=== PATIENT | female | born 2000 | race Caucasian/White ===

== ENCOUNTER 2021-07-27 23:15 | Emergency (ER) | payer OTHER ==
[~2021-07-27] VITALS: Ht 152.4 cm; Wt 81.0 kg
[2021-07-28 07:29] LABS: BASO % 0.3 % (0.0-1.0); EOS # 0.2 10^3/uL (0.0-0.5); EOS % 2.2 % (0.0-3.0); HEMATOCRIT 38.9 % (36.0-47.0); HEMOGLOBIN 12.5 g/dl (12.0-15.5); LYMPH # 1.6 10^3/uL (1.5-5.0); LYMPH % 21.4 % (24.0-44.0); MEAN CORPUSCULAR HEMOGLOBIN 27.5 pg (27.0-33.0); MEAN CORPUSCULAR HGB CONC 32.1 g/dl (32.0-36.5); MEAN CORPUSCULAR VOLUME 85.5 fl (80.0-96.0); MONO # 0.7 10^3/uL (0.0-0.8); MONO % 9.7 % (2.0-8.0); NEUTROPHILS # 4.8 10^3/uL (1.5-8.5); NEUTROPHILS % 66.1 % (36.0-66.0); PLATELET COUNT, AUTOMATED 211 10^3/uL (150-450); RED BLOOD COUNT 4.55 10^6/uL (4.00-5.40); WHITE BLOOD COUNT 7.2 10^3/uL (4.0-10.0)
[2021-07-28] MEDS ORDERED: KETOROLAC 30 MG/ML 1ML VIAL IV ONE (07:30)
[2021-07-28 07:46] LABS: ERYTHROCYTE SEDIMENTATION RATE 10 mm/hr (0-20)
[2021-07-28 07:52] LABS: ALT/SGPT 62 U/L (12-78); AMYLASE 62 U/L (25-115); BILIRUBIN,DIRECT 0.2 MG/DL (0.0-0.2); BILIRUBIN,TOTAL 0.4 MG/DL (0.2-1.0); BLOOD UREA NITROGEN 19 MG/DL (7-18); C REACTIVE PROTEIN QUANTITATIV 1.79 MG/DL (0.00-0.30); CALCIUM LEVEL 9.1 MG/DL (8.5-10.1); CARBON DIOXIDE LEVEL 30 MEQ/L (21-32); CHLORIDE LEVEL 109 MEQ/L (98-107); CREATININE FOR GFR 0.71 MG/DL (0.55-1.30); GLUCOSE, FASTING 100 MG/DL (70-100); HCG, SERUM QUANTITATIVE < 1.0 MIU/ML; LIPASE 82 U/L (73-393); POTASSIUM SERUM 4.2 MEQ/L (3.5-5.1); SODIUM LEVEL 140 MEQ/L (136-145)
[2021-07-28] MEDS ORDERED: ONDA4TAB6 PO (09:04)
[2021-07-28 09:09] VITALS: BP 107/65
== END 2021-07-28 09:22 | disposition home or self-care (01) ==
LOC: M ED 23:15
DX: R10.9 Unspecified abdominal pain (principal); F90.9 Attention-deficit hyperactivity disorder, unspecified type; Z91.013 Allergy to seafood
CPT/HCPCS: 36415; 76705; 80048; 80076; 82150; 83690; 84702; 85025; 85652; 86140; 96374; 99284; J1885

== ENCOUNTER 2021-08-03 | Emergency (ER) | payer OTHER ==
[~2021-08-03] VITALS: Ht 152.4 cm; Wt 80.7 kg
[~2021-08-03] MED LIST: ONDA4TAB6 PO
[2021-08-03] MEDS ORDERED: predniSONE 20 MG TAB PO ONE (04:15)
[2021-08-03] MEDS ORDERED: PRED20TA PO (04:17)
[2021-08-03 05:09] VITALS: BP 110/74
== END 2021-08-03 05:10 | disposition home or self-care (01) ==
LOC: M ED
DX: T78.40XA Allergy, unspecified, initial encounter (principal); Y92.9 Unspecified place or not applicable; Y93.E2 Activity, laundry; Z91.013 Allergy to seafood
CPT/HCPCS: 99283; J7512

== ENCOUNTER 2021-08-09 23:07 | Emergency (ER) | payer OTHER ==
[~2021-08-09] VITALS: Ht 152.4 cm; Wt 83.4 kg
[~2021-08-09 23:07] MED LIST changes: +PRED20TA PO
[2021-08-10] MEDS ORDERED: NS 1,000 ML IV ONE (01:15)
[2021-08-10] MEDS ORDERED: KETOROLAC 30 MG/ML 1ML VIAL IV ONE (01:15)
[2021-08-10] MEDS ORDERED: ONDANSETRON 4MG/2ML VIAL IV ONE (01:15)
[2021-08-10] MEDS ORDERED: MECLIZINE 25 MG TABLET PO ONE (01:15)
[2021-08-10 02:13] LABS: BASO # 0.1 10^3/uL (0.0-0.2); BASO % 0.5 % (0.0-1.0); EOS # 0.3 10^3/uL (0.0-0.5); EOS % 2.4 % (0.0-3.0); HEMATOCRIT 38.5 % (36.0-47.0); HEMOGLOBIN 12.4 g/dl (12.0-15.5); LYMPH # 3.3 10^3/uL (1.5-5.0); LYMPH % 31.2 % (24.0-44.0); MEAN CORPUSCULAR HEMOGLOBIN 27.8 pg (27.0-33.0); MEAN CORPUSCULAR HGB CONC 32.2 g/dl (32.0-36.5); MEAN CORPUSCULAR VOLUME 86.3 fl (80.0-96.0); MONO # 0.8 10^3/uL (0.0-0.8); MONO % 7.3 % (2.0-8.0); NEUTROPHILS # 6.1 10^3/uL (1.5-8.5); NEUTROPHILS % 58.3 % (36.0-66.0); PLATELET COUNT, AUTOMATED 234 10^3/uL (150-450); RED BLOOD COUNT 4.46 10^6/uL (4.00-5.40); WHITE BLOOD COUNT 10.5 10^3/uL (4.0-10.0)
[2021-08-10 02:17] LABS: BLOOD UREA NITROGEN 20 MG/DL (7-18); CALCIUM LEVEL 9.1 MG/DL (8.5-10.1); CARBON DIOXIDE LEVEL 28 MEQ/L (21-32); CHLORIDE LEVEL 107 MEQ/L (98-107); CREATININE FOR GFR 0.74 MG/DL (0.55-1.30); GLUCOSE, FASTING 94 MG/DL (70-100); POTASSIUM SERUM 4.4 MEQ/L (3.5-5.1); SODIUM LEVEL 139 MEQ/L (136-145)
[2021-08-10 03:46] LABS: RSV AMPLIFICATION NEGATIVE (NEGATIVE)
[2021-08-10 03:55] VITALS: BP 111/59
== END 2021-08-10 03:56 | disposition home or self-care (01) ==
LOC: M ED 23:07
DX: R51.9 Headache, unspecified (principal); E66.9 Obesity, unspecified; Z91.013 Allergy to seafood
CPT/HCPCS: 70450; 80047; 80048; 83735; 84439; 84443; 84702; 85025; 86140; 87631; 96361; 96374; 96375; 99284; J1885; J2405

== ENCOUNTER → 2021-08-23 | Outpatient (REF) | payer OTHER ==
[2021-08-23 17:06] LABS: HCG, SERUM QUALITATIVE NEGATIVE (NEGATIVE)
[2021-08-23 17:10] LABS: HCG, SERUM QUANTITATIVE < 1.0 MIU/ML
== END ==
LOC: M LAB REF 16:11
PROVIDERS: ATTEND Physician Assistant Medical
DX: Z32.00 Encounter for pregnancy test, result unknown (principal)

== ENCOUNTER 2021-12-21 21:15 | Emergency (ER) | payer OTHER ==
[~2021-12-21] VITALS: Ht 154.9 cm; Wt 80.3 kg
[2021-12-21 21:18] VITALS: BP 119/79
[2021-12-21 22:23] LABS: HEMATOCRIT 36.5 % (36.0-47.0); HEMOGLOBIN 11.9 g/dl (12.0-15.5); MEAN CORPUSCULAR HGB CONC 32.6 g/dl (32.0-36.5); MEAN CORPUSCULAR VOLUME 85.9 fl (80.0-96.0); PLATELET COUNT, AUTOMATED 225 10^3/uL (150-450); RED BLOOD COUNT 4.25 10^6/uL (4.00-5.40); WHITE BLOOD COUNT 5.8 10^3/uL (4.0-10.0)
[2021-12-21 22:47] LABS: AMPHETAMINES LEVEL URINE NEGATIVE (NEGATIVE); BARBITURATES URINE NEGATIVE (NEGATIVE); BENZODIAZEPINES URINE NEGATIVE (NEGATIVE); CANNABINOIDS URINE NEGATIVE (NEGATIVE); COCAINE METABOLITE URINE NEGATIVE (NEGATIVE); METHADONE URINE NEGATIVE (NEGATIVE); OPIATES URINE NEGATIVE (NEGATIVE); PHENCYCLIDINE URINE NEGATIVE (NEGATIVE)
[2021-12-21 22:51] LABS: RSV AMPLIFICATION NEGATIVE (NEGATIVE)
[2021-12-21 22:56] LABS: ACETAMINOPHEN LEVEL < 2.0 UG/ML (10.0-30.0); ALBUMIN 3.8 GM/DL (3.2-5.2); ALT/SGPT 30 U/L (12-78); BILIRUBIN,DIRECT 0.2 MG/DL (0.0-0.2); BILIRUBIN,TOTAL 0.4 MG/DL (0.2-1.0); BLOOD UREA NITROGEN 13 MG/DL (7-18); CALCIUM LEVEL 8.9 MG/DL (8.5-10.1); CARBON DIOXIDE LEVEL 28 MEQ/L (21-32); CHLORIDE LEVEL 109 MEQ/L (98-107); CREATININE FOR GFR 0.94 MG/DL (0.55-1.30); ETHYL ALCOHOL (ETHANOL) < 0.003 % (0.000-0.010); GLUCOSE, FASTING 85 MG/DL (70-100); POTASSIUM SERUM 3.7 MEQ/L (3.5-5.1); SALICYLATE LEVEL < 1.7 MG/DL (5.0-30.0); SODIUM LEVEL 144 MEQ/L (136-145); THYROID STIMULATING HORMONE 0.801 uIU/ML (0.463-3.98); TOTAL PROTEIN 6.7 GM/DL (6.4-8.2)
[2021-12-21 23:00] LABS: HCG, SERUM QUALITATIVE NEGATIVE (NEGATIVE)
== END 2021-12-21 23:40 | disposition home or self-care (01) ==
LOC: M ED 21:15
DX: F43.0 Acute stress reaction (principal); F32.9 Major depressive disorder, single episode, unspecified; F41.9 Anxiety disorder, unspecified; F43.10 Post-traumatic stress disorder, unspecified; F17.200 Nicotine dependence, unspecified, uncomplicated; F12.10 Cannabis abuse, uncomplicated; Z91.013 Allergy to seafood

== ENCOUNTER 2022-01-02 20:12 | Emergency (ER) | payer OTHER ==
[~2022-01-02] VITALS: Ht 154.9 cm; Wt 80.5 kg
[2022-01-02] MEDS ORDERED: TRAZ-252 PO (20:29)
[2022-01-02] MEDS ORDERED: ZOLO100T PO (20:29)
[2022-01-02] MEDS ORDERED: ACETAMINOPHEN 325 MG TAB PO ONE (22:35)
[2022-01-02 22:49] VITALS: BP 116/65
== END 2022-01-02 22:55 | disposition home or self-care (01) ==
LOC: M ED 20:12
DX: S60.221A Contusion of right hand, initial encounter (principal); W22.8XXA Striking against or struck by other objects, initial encounter; Y92.830 Public park as the place of occurrence of the external cause; F17.200 Nicotine dependence, unspecified, uncomplicated; Z91.013 Allergy to seafood

== ENCOUNTER → 2022-02-15 | Outpatient (REF) | payer OTHER ==
[~2022-02-15] MED LIST changes: +TRAZ-252 PO; +ZOLO100T PO
[2022-02-15 17:50] LABS: HCG, SERUM QUALITATIVE POSITIVE (NEGATIVE)
[2022-02-15 18:01] LABS: HCG, SERUM QUANTITATIVE 262 MIU/ML
== END ==
LOC: M LAB REF 16:37
PROVIDERS: ATTEND Physician Assistant
DX: Z32.01 Encounter for pregnancy test, result positive (principal)

== ENCOUNTER → 2022-04-06 | Outpatient (REF) | payer OTHER | LOC: M LAB REF 16:37 | PROVIDERS: ATTEND Physician Assistant Medical | DX: R05.9 Cough, unspecified (principal) ==

== ENCOUNTER → 2022-04-17 | Outpatient (CLI) | payer OTHER ==
[2022-04-17 17:35] LABS: HEMATOCRIT 36.3 % (36.0-47.0); HEMOGLOBIN 11.9 g/dl (12.0-15.5); MEAN CORPUSCULAR HEMOGLOBIN 28.1 pg (27.0-33.0); MEAN CORPUSCULAR HGB CONC 32.8 g/dl (32.0-36.5); MEAN CORPUSCULAR VOLUME 85.6 fl (80.0-96.0); PLATELET COUNT, AUTOMATED 158 10^3/uL (150-450); RED BLOOD COUNT 4.24 10^6/uL (4.00-5.40); WHITE BLOOD COUNT 5.3 10^3/uL (4.0-10.0)
[2022-04-17 18:36] LABS: HIV 1&2 SCREEN CENTAUR NEGATIVE (NEGATIVE)
[2022-04-17 18:45] LABS: HEPATITIS C VIRUS ABY INDEX 0.1 INDEX (<0.8)
[2022-04-17 18:54] LABS: GC DNA AMPLIFICATION NEGATIVE (NEGATIVE)
== END ==
LOC: M PLALAB 15:21
PROVIDERS: ATTEND Obstetrics & Gynecology
DX: Z34.91 Encounter for supervision of normal pregnancy, unspecified, first trimester (principal)

== ENCOUNTER 2022-05-13 19:30 | Emergency (ER) | payer OTHER ==
[~2022-05-13] VITALS: Ht 154.9 cm; Wt 75.9 kg
[2022-05-13 20:07] LABS: BASO % 0.1 % (0.0-1.0); EOS # 0.1 10^3/uL (0.0-0.5); EOS % 1.2 % (0.0-3.0); HEMATOCRIT 35.8 % (36.0-47.0); HEMOGLOBIN 11.9 g/dl (12.0-15.5); LYMPH # 1.4 10^3/uL (1.5-5.0); LYMPH % 20.9 % (24.0-44.0); MEAN CORPUSCULAR HEMOGLOBIN 28.3 pg (27.0-33.0); MEAN CORPUSCULAR HGB CONC 33.2 g/dl (32.0-36.5); MEAN CORPUSCULAR VOLUME 85.2 fl (80.0-96.0); MONO # 0.5 10^3/uL (0.0-0.8); NEUTROPHILS # 4.7 10^3/uL (1.5-8.5); NEUTROPHILS % 69.5 % (36.0-66.0); PLATELET COUNT, AUTOMATED 141 10^3/uL (150-450); WHITE BLOOD COUNT 6.8 10^3/uL (4.0-10.0)
[2022-05-13 20:17] LABS: INR 0.96
[2022-05-13 20:33] LABS: CK-MB VALUE MASS < 1.0 NG/ML (<3.6); LIPASE 34 U/L (12-53)
[2022-05-13 20:34] LABS: BILIRUBIN,DIRECT 0.1 MG/DL (<0.4)
[2022-05-13 20:35] LABS: ALBUMIN 3.5 G/DL (3.2-5.2); ALKALINE PHOSPHATASE 49 U/L (46-116); ALT/SGPT 11 U/L (7.0-40); AST/SGOT 13 U/L (<34); BILIRUBIN,TOTAL 0.4 MG/DL (0.3-1.2); BLOOD UREA NITROGEN 13 MG/DL (9-23); CARBON DIOXIDE LEVEL 20 MMOL/L (20-31); CHLORIDE LEVEL 108 MMOL/L (98-107); CREATININE FOR GFR 0.61 MG/DL (0.55-1.30); GLUCOSE, FASTING 110 MG/DL (60-100); POTASSIUM SERUM 3.7 MMOL/L (3.5-5.1); SODIUM LEVEL 139 MMOL/L (136-145)
[2022-05-13 20:44] LABS: CPK CREATINE PHOSPHOKINASE 25 U/L (34-145)
[2022-05-13 21:51] LABS: CK-MB VALUE MASS < 1.0 NG/ML (<3.6)
[2022-05-13 21:52] LABS: CPK CREATINE PHOSPHOKINASE 26 U/L (34-145); MB/CK RELATIVE INDEX 3.84 (< OR =4)
[2022-05-13 23:20] VITALS: BP 114/59
== END 2022-05-14 03:29 | disposition left against medical advice (07) ==
LOC: M ED 19:30
DX: Z53.21 Procedure and treatment not carried out due to patient leaving prior to being seen by health care provider (principal)

== ENCOUNTER → 2022-05-22 | Outpatient (REF) | payer OTHER ==
[2022-05-22 23:01] LABS: GC DNA AMPLIFICATION NEGATIVE (NEGATIVE)
== END ==
LOC: M LAB REF 20:59
PROVIDERS: ATTEND Physician Assistant Medical
DX: R30.0 Dysuria (principal)

== ENCOUNTER → 2022-06-13 | Outpatient (CLI) | payer OTHER | LOC: M WHC 14:23 | PROVIDERS: ATTEND Specialist | DX: Z34.02 Encounter for supervision of normal first pregnancy, second trimester (principal); Z36.89 Encounter for other specified antenatal screening; Z3A.20 20 weeks gestation of pregnancy ==

== ENCOUNTER → 2022-12-09 | Outpatient (CLI) | payer OTHER ==
[2022-12-09 13:18] LABS: HCG, SERUM QUANTITATIVE < 2.6 MIU/ML (<4.2)
[2022-12-09 13:22] LABS: HCG, SERUM QUALITATIVE NEGATIVE (NEGATIVE)
== END ==
LOC: M LAB 12:22
PROVIDERS: ATTEND Physician Assistant Medical
DX: N91.5 Oligomenorrhea, unspecified (principal)

== ENCOUNTER 2022-12-14 20:57 | Emergency (ER) | payer OTHER ==
[~2022-12-14] VITALS: Ht 154.9 cm; Wt 65.0 kg
[2022-12-14 21:02] VITALS: TEMP 98
[2022-12-14 21:30] VITALS: BP 138/62; O2SAT 95
[2022-12-14] MEDS ORDERED: EPIP0.3I2 IM (23:57)
[2022-12-16] MEDS ORDERED: VITA200020 PO (00:02)
[2022-12-16] MEDS ORDERED: FERR325T3 PO (00:02)
[2022-12-16] MEDS ORDERED: VENTAER INH (09:54)
[2022-12-16] MEDS ORDERED: EPIP0.3I2 IM (09:56)
== END 2022-12-15 00:37 | disposition home or self-care (01) ==
LOC: EDBD 20:57 → M ED 20:57
DX: T78.40XA Allergy, unspecified, initial encounter (principal); Z79.899 Other long term (current) drug therapy; Z91.013 Allergy to seafood

== ENCOUNTER 2022-12-15 20:15 | Observation (INO) | payer OTHER ==
[~2022-12-15 20:15] MED LIST changes: +EPIP0.3I2 IM
[2022-12-15] MEDS ORDERED: IPRATROPIUM 0.5MG/ALBUTEROL 2.5MG INH SOL UD 3ML (DUONEB) NEB ONE (20:40)
[2022-12-15] MEDS ORDERED: FAMOTIDINE 20MG/2ML VIAL IVP ONE (20:40)
[2022-12-15 21:49] LABS: BASO % 0.3 % (0.0-1.0); EOS # 0.1 10^3/uL (0.0-0.5); EOS % 0.9 % (0.0-3.0); HEMATOCRIT 36.4 % (36.0-47.0); HEMOGLOBIN 11.6 g/dl (12.0-15.5); LYMPH # 1.9 10^3/uL (1.5-5.0); LYMPH % 23.9 % (24.0-44.0); MEAN CORPUSCULAR HEMOGLOBIN 27.4 pg (27.0-33.0); MEAN CORPUSCULAR HGB CONC 31.9 g/dl (32.0-36.5); MEAN CORPUSCULAR VOLUME 85.8 fl (80.0-96.0); MONO # 0.4 10^3/uL (0.0-0.8); MONO % 4.6 % (2.0-8.0); NEUTROPHILS # 5.5 10^3/uL (1.5-8.5); PLATELET COUNT, AUTOMATED 234 10^3/uL (150-450); RED BLOOD COUNT 4.24 10^6/uL (4.00-5.40); WHITE BLOOD COUNT 7.8 10^3/uL (4.0-10.0)
[2022-12-15 22:26] LABS: HCG, SERUM QUALITATIVE NEGATIVE (NEGATIVE)
[2022-12-15 22:28] LABS: BLOOD UREA NITROGEN 16 MG/DL (9-23); CALCIUM LEVEL 8.7 MG/DL (8.5-10.1); CARBON DIOXIDE LEVEL 19 MMOL/L (20-31); CHLORIDE LEVEL 110 MMOL/L (98-107); CREATININE FOR GFR 0.87 MG/DL (0.55-1.30); GLUCOSE, FASTING 120 MG/DL (60-100); POTASSIUM SERUM 2.9 MMOL/L (3.5-5.1); SODIUM LEVEL 143 MMOL/L (136-145)
[2022-12-15] MEDS ORDERED: POTASSIUM CHLORIDE 10MEQ SR TABLET PO ONE (22:40)
[2022-12-15] MEDS ORDERED: KCL 10MEQ/100ML SWI (KRUN) 10 MEQ in IV 1 EA IV ONE (22:40)
[2022-12-15] MEDS ORDERED: AZITHROMYCIN 250MG TABLET PO ONE (23:45)
[2022-12-15] MEDS ORDERED: cefTRIAXone SOD 1 GM in D5W MINI-BAG PLUS 50 ML IV ONE (23:45)
[2022-12-16] MEDS ORDERED: VITA200020 PO (00:02)
[2022-12-16] MEDS ORDERED: FERR325T3 PO (00:02)
[2022-12-16] MEDS ORDERED: HOME MED LIST COMPLETE! XX SCH (00:05)
[2022-12-16] MEDS ORDERED: ACETAMINOPHEN TAB 650MG DOSE (2X325MG) PO PRN (00:45)
[2022-12-16] MEDS ORDERED: ALBUTEROL SULFATE 2.5MG/0.5ML INH NEB SOLN NEB PRN (00:45)
[2022-12-16] MEDS ORDERED: diphenhydrAMINE 25MG CAP PO PRN (00:45)
[2022-12-16 02:23] LABS: RSV AMPLIFICATION NEGATIVE (NEGATIVE)
[2022-12-16] MEDS: methylPREDNISolone 40MG 1ML VIAL IV SCH ×2 (03:01→10:19)
[2022-12-16] MEDS: IPRATROPIUM 0.5MG/ALBUTEROL 2.5MG INH SOL UD 3ML (DUONEB) NEB SCH ×2 (03:11→08:22)
[2022-12-16 06:40] LABS: BLOOD UREA NITROGEN 13 MG/DL (9-23); CARBON DIOXIDE LEVEL 19 MMOL/L (20-31); CHLORIDE LEVEL 109 MMOL/L (98-107); CREATININE FOR GFR 0.78 MG/DL (0.55-1.30); GLUCOSE, FASTING 269 MG/DL (60-100); SODIUM LEVEL 140 MMOL/L (136-145)
[2022-12-16 08:15] LABS: HEMOGLOBIN A1c 5.2 % (4.0-6.0)
[2022-12-16] MEDS ORDERED: DOXYCYCLINE HYCLATE 100MG TABLET PO SCH (09:00)
[2022-12-16] MEDS ORDERED: FAMOTIDINE 20MG/2ML VIAL IVP SCH (09:00)
[2022-12-16] MEDS ORDERED: VENTAER INH (09:54)
[2022-12-16] MEDS ORDERED: EPIP0.3I2 IM (09:56)
[2022-12-16 11:36] VITALS: BP 125/61; TEMP 97.9; O2SAT 98
== END 2022-12-16 12:09 | disposition home or self-care (01) ==
LOC: EDBD 20:15 → M ED 20:15 → M ED INP 23:50
PROVIDERS: ADMIT Internal Medicine; ATTEND Internal Medicine
DX: T78.02XA Anaphylactic reaction due to shellfish (crustaceans), initial encounter (principal); Z91.013 Allergy to seafood; J45.909 Unspecified asthma, uncomplicated; D50.9 Iron deficiency anemia, unspecified; Z79.51 Long term (current) use of inhaled steroids; Z79.899 Other long term (current) drug therapy
CPT/HCPCS: 36415; 71046; 80048; 83036; 84703; 85025; 87040; 87631; 93005; 93041; 94640; 94760; 96361; 96365; 96375; 96376; 99285; J0696; J2920; S0028

== ENCOUNTER 2023-02-15 14:40 | Emergency (ER) | payer OTHER ==
[~2023-02-15] VITALS: Ht 154.9 cm; Wt 77.7 kg
[~2023-02-15 14:40] MED LIST changes: +FERR325T3 PO; +VENTAER INH; +VITA200020 PO
[2023-02-15 14:41] VITALS: BP 119/69; TEMP 97.5; O2SAT 100
[2023-02-15 15:47] LABS: BASO % 0.2 % (0.0-1.0); EOS # 0.2 10^3/uL (0.0-0.5); EOS % 2.5 % (0.0-3.0); HEMATOCRIT 39.5 % (36.0-47.0); LYMPH # 1.7 10^3/uL (1.5-5.0); LYMPH % 29.3 % (24.0-44.0); MEAN CORPUSCULAR HEMOGLOBIN 27.4 pg (27.0-33.0); MEAN CORPUSCULAR HGB CONC 32.9 g/dl (32.0-36.5); MEAN CORPUSCULAR VOLUME 83.3 fl (80.0-96.0); MONO # 0.5 10^3/uL (0.0-0.8); MONO % 8.6 % (2.0-8.0); NEUTROPHILS # 3.5 10^3/uL (1.5-8.5); NEUTROPHILS % 59.1 % (36.0-66.0); PLATELET COUNT, AUTOMATED 196 10^3/uL (150-450); RED BLOOD COUNT 4.74 10^6/uL (4.00-5.40); WHITE BLOOD COUNT 5.9 10^3/uL (4.0-10.0)
[2023-02-15 16:10] LABS: LIPASE 43 U/L (12-53)
[2023-02-15 16:11] LABS: HCG, SERUM QUALITATIVE NEGATIVE (NEGATIVE)
[2023-02-15 16:12] LABS: ALBUMIN 4.2 G/DL (3.2-5.2); ALKALINE PHOSPHATASE 62 U/L (46-116); ALT/SGPT 36 U/L (7.0-40); AST/SGOT 18 U/L (<34); BILIRUBIN,DIRECT 0.2 MG/DL (<0.4); BILIRUBIN,TOTAL 0.5 MG/DL (0.3-1.2); BLOOD UREA NITROGEN 18 MG/DL (9-23); CALCIUM LEVEL 9.2 MG/DL (8.5-10.1); CARBON DIOXIDE LEVEL 26 MMOL/L (20-31); CHLORIDE LEVEL 108 MMOL/L (98-107); CREATININE FOR GFR 0.81 MG/DL (0.55-1.30); GLOMERULAR FILTRATION RATE > 60.0 (>60); GLUCOSE, FASTING 91 MG/DL (60-100); POTASSIUM SERUM 4.2 MMOL/L (3.5-5.1); SODIUM LEVEL 141 MMOL/L (136-145); TOTAL PROTEIN 6.8 G/DL (5.7-8.2)
[2023-02-15] MEDS ORDERED: METOCLOPRAMIDE INJ 10MG/2ML VIAL IV ONE (19:10)
[2023-02-15] MEDS ORDERED: KETOROLAC 30 MG/ML 1ML VIAL IV ONE (19:10)
[2023-02-15] MEDS ORDERED: ISOVUE-370 76% 100ML VIAL As Ordered ONE (19:15)
[2023-02-15] MEDS ORDERED: REGL10TA6 PO (20:42)
[2023-02-15] MEDS ORDERED: IBUP-1022 PO (20:42)
== END 2023-02-15 21:14 | disposition home or self-care (01) ==
LOC: M ED 14:40
DX: S93.401A Sprain of unspecified ligament of right ankle, initial encounter (principal); R10.9 Unspecified abdominal pain; R11.2 Nausea with vomiting, unspecified; R51.9 Headache, unspecified; R19.7 Diarrhea, unspecified; Y92.9 Unspecified place or not applicable; X58.XXXA Exposure to other specified factors, initial encounter; Z91.013 Allergy to seafood; Z79.899 Other long term (current) drug therapy
CPT/HCPCS: 73610; 74177; 80048; 80076; 81001; 83690; 84703; 85025; 96374; 96375; 99283; J1885; J2765; Q9967

== ENCOUNTER → 2023-03-14 | Outpatient (REF) | payer OTHER ==
[~2023-03-14] MED LIST changes: +IBUP-1022 PO; +REGL10TA6 PO
== END ==
LOC: M LAB REF 11:32
PROVIDERS: ATTEND Physician Assistant
DX: Z33.1 Pregnant state, incidental (principal)

== ENCOUNTER 2024-04-23 16:28 | Emergency (ER) | payer OTHER ==
[~2024-04-23] VITALS: Ht 154.9 cm; Wt 85.1 kg
[~2024-04-23 16:28] MED LIST changes: +ONDA-282 PO; -ONDA4TAB6 PO
[2024-04-23] MEDS: ALBUTEROL SULFATE 2.5MG/0.5ML INH NEB SOLN NEB SCH (17:07)
[2024-04-23] MEDS: EPINEPHrine INJ 1 MG/ML 1ML AMP IM STA (17:19)
[2024-04-23] MEDS: FAMOTIDINE 20MG/2ML VIAL IVP ONE (17:21)
[2024-04-23] MEDS: methylPREDNISolone 125MG 2ML VIAL IV ONE (17:21)
[2024-04-23] MEDS: diphenhydrAMINE 50MG/ML VIAL IV ONE (17:21)
[2024-04-23] MEDS: NS (Normal Saline) 0.9% 1,000 ML IV ONE ×2 (17:21→18:56)
[2024-04-23] MEDS: ONDANSETRON 4MG 2ML VIAL IV ONE (17:21)
[2024-04-23 17:25] LABS: BASO % 0.1 % (0.0-1.0); EOS # 0.1 10^3/uL (0.0-0.5); EOS % 1.7 % (0.0-3.0); HEMATOCRIT 37.3 % (36.0-47.0); HEMOGLOBIN 12.8 g/dl (12.0-15.5); LYMPH # 2.1 10^3/uL (1.5-5.0); LYMPH % 30.5 % (24.0-44.0); MEAN CORPUSCULAR HEMOGLOBIN 29.4 pg (27.0-33.0); MEAN CORPUSCULAR HGB CONC 34.3 g/dl (32.0-36.5); MEAN CORPUSCULAR VOLUME 85.6 fl (80.0-96.0); MONO # 0.5 10^3/uL (0.0-0.8); MONO % 7.7 % (2.0-8.0); NEUTROPHILS # 4.2 10^3/uL (1.5-8.5); NEUTROPHILS % 59.9 % (36.0-66.0); PLATELET COUNT, AUTOMATED 190 10^3/uL (150-450); RED BLOOD COUNT 4.36 10^6/uL (4.00-5.40)
[2024-04-23 17:32] LABS: ERYTHROCYTE SEDIMENTATION RATE 5 mm/hr (0-20)
[2024-04-23 17:42] LABS: HCG, SERUM QUALITATIVE NEGATIVE (NEGATIVE)
[2024-04-23 17:45] LABS: ALBUMIN 3.9 G/DL (3.2-5.2); ALKALINE PHOSPHATASE 60 U/L (35-104); ALT/SGPT 30 U/L (7.0-40); AST/SGOT 18 U/L (<34); BILIRUBIN,DIRECT 0.2 MG/DL (<0.4); BILIRUBIN,TOTAL 0.5 MG/DL (0.3-1.2); BLOOD UREA NITROGEN 14 MG/DL (9-23); C REACTIVE PROTEIN QUANTITATIV < 0.50 MG/DL (<1.0); CALCIUM LEVEL 9.4 MG/DL (8.5-10.1); CARBON DIOXIDE LEVEL 25 MMOL/L (20-31); CHLORIDE LEVEL 109 MMOL/L (98-107); CREATININE FOR GFR 0.77 MG/DL (0.55-1.30); GLOMERULAR FILTRATION RATE > 60.0 (>60); GLUCOSE, FASTING 97 MG/DL (60-100); POTASSIUM SERUM 4.3 MMOL/L (3.5-5.1); SODIUM LEVEL 143 MMOL/L (136-145); TOTAL PROTEIN 6.6 G/DL (5.7-8.2)
[2024-04-23 20:09] VITALS: TEMP 98.6
[2024-04-23 20:13] VITALS: O2SAT 100
[2024-04-23 20:15] VITALS: BP 111/57
== END 2024-04-23 20:30 | disposition home or self-care (01) ==
LOC: M ED 16:28
DX: T78.40XA Allergy, unspecified, initial encounter (principal); F41.9 Anxiety disorder, unspecified; F32.A Depression, unspecified; J45.909 Unspecified asthma, uncomplicated; R51.9 Headache, unspecified; F17.200 Nicotine dependence, unspecified, uncomplicated; Z91.013 Allergy to seafood; Z79.899 Other long term (current) drug therapy
CPT/HCPCS: 71045; 80048; 80076; 84703; 85025; 85652; 86140; 94640; 96361; 96372; 96374; 99285; J0171; J1200; J2405; J2919; S0028

== ENCOUNTER 2024-04-27 17:52 | Emergency (ER) | payer OTHER ==
[~2024-04-27] VITALS: Ht 154.9 cm; Wt 81.8 kg
[2024-04-27 17:56] VITALS: TEMP 97.1
[2024-04-27 19:04] LABS: BASO % 0.1 % (0.0-1.0); EOS % 0.4 % (0.0-3.0); HEMATOCRIT 38.7 % (36.0-47.0); LYMPH # 0.6 10^3/uL (1.5-5.0); LYMPH % 7.6 % (24.0-44.0); MEAN CORPUSCULAR HEMOGLOBIN 29.1 pg (27.0-33.0); MEAN CORPUSCULAR HGB CONC 33.6 g/dl (32.0-36.5); MEAN CORPUSCULAR VOLUME 86.6 fl (80.0-96.0); MONO # 0.7 10^3/uL (0.0-0.8); MONO % 9.7 % (2.0-8.0); NEUTROPHILS # 6.3 10^3/uL (1.5-8.5); NEUTROPHILS % 81.8 % (36.0-66.0); PLATELET COUNT, AUTOMATED 156 10^3/uL (150-450); RED BLOOD COUNT 4.47 10^6/uL (4.00-5.40); WHITE BLOOD COUNT 7.7 10^3/uL (4.0-10.0)
[2024-04-27] MEDS: MORPHINE 4 MG/ML 1ML VIAL IV ONE (19:07)
[2024-04-27] MEDS: ONDANSETRON 4MG 2ML VIAL IV ONE ×2 (19:07→21:03)
[2024-04-27] MEDS ORDERED: ISOVUE-370 76% 100ML VIAL As Ordered ONE (19:12)
[2024-04-27 19:26] LABS: LIPASE 24 U/L (12-53)
[2024-04-27 19:28] LABS: ALBUMIN 3.8 G/DL (3.2-5.2); ALKALINE PHOSPHATASE 70 U/L (35-104); ALT/SGPT 57 U/L (7.0-40); AST/SGOT 23 U/L (<34); BILIRUBIN,DIRECT 0.5 MG/DL (<0.4); BILIRUBIN,TOTAL 1.2 MG/DL (0.3-1.2)
[2024-04-27 19:29] LABS: HCG, SERUM QUALITATIVE NEGATIVE (NEGATIVE)
[2024-04-27] MEDS: cefTRIAXone SOD 1 GM in DEXTROSE 5% (D5W) ADV/MINI-BAG 50 ML IV ONE (19:53)
[2024-04-27] MEDS: NS (Normal Saline) 0.9% 1,000 ML IV ONE ×2 (19:53→21:50)
[2024-04-27 22:30] VITALS: BP 101/55; O2SAT 97
[2024-04-27] MEDS ORDERED: PHEN-372 PO (22:39)
[2024-04-27] MEDS ORDERED: SULF1TAB23 PO (22:39)
== END 2024-04-27 22:50 | disposition home or self-care (01) ==
LOC: M ED 17:52 → EDBD 17:52 → M ED 22:50
DX: N39.0 Urinary tract infection, site not specified (principal); F17.200 Nicotine dependence, unspecified, uncomplicated; F12.10 Cannabis abuse, uncomplicated; F10.10 Alcohol abuse, uncomplicated; Z91.013 Allergy to seafood; Z79.2 Long term (current) use of antibiotics; Z79.899 Other long term (current) drug therapy
CPT/HCPCS: 74177; 80047; 80076; 81001; 83605; 83690; 84703; 85025; 87040; 87088; 87186; 93005; 93041; 94760; 96361; 96365; 96375; 96376; 99285; J0696; J2405; Q9967

== ENCOUNTER → 2024-06-01 | Outpatient (CLI) | payer OTHER ==
[~2024-06-01] MED LIST changes: +PHEN-372 PO; +SULF1TAB23 PO
[2024-06-01 13:25] LABS: HCG, SERUM QUALITATIVE NEGATIVE (NEGATIVE)
[2024-06-01 13:36] LABS: HCG, SERUM QUANTITATIVE < 2.6 MIU/ML (<4.2)
== END ==
LOC: M LAB 12:28
PROVIDERS: ATTEND Physician Assistant Medical
DX: Z32.00 Encounter for pregnancy test, result unknown (principal)

== ENCOUNTER 2024-06-07 18:57 | Emergency (ER) | payer OTHER ==
[~2024-06-07] VITALS: Ht 154.9 cm; Wt 85.7 kg
[2024-06-07 18:59] VITALS: TEMP 97.2
[2024-06-08 00:42] VITALS: BP 120/84; O2SAT 98
[2024-06-08] MEDS ORDERED: HYDR25OIN TOP (00:46)
== END 2024-06-08 01:03 | disposition home or self-care (01) ==
LOC: M ED 18:57
DX: S63.501A Unspecified sprain of right wrist, initial encounter (principal); X50.0XXA Overexertion from strenuous movement or load, initial encounter; L25.9 Unspecified contact dermatitis, unspecified cause; J45.909 Unspecified asthma, uncomplicated; F17.200 Nicotine dependence, unspecified, uncomplicated; Z91.012 Allergy to eggs; Z79.899 Other long term (current) drug therapy; Z79.2 Long term (current) use of antibiotics; Y92.9 Unspecified place or not applicable; Y93.89 Activity, other specified; Y99.9 Unspecified external cause status

== ENCOUNTER 2024-07-17 07:06 | Emergency (ER) | payer OTHER ==
[~2024-07-17] VITALS: Ht 154.9 cm; Wt 90.5 kg
[~2024-07-17 07:06] MED LIST changes: +HYDR25OIN TOP
[2024-07-17] MEDS ORDERED: JUNE1.5T (07:14)
[2024-07-17] MEDS: SUCRALFATE SUSP 1GM/10ML UD PO ONE (09:51)
[2024-07-17] MEDS: ONDANSETRON 4MG 2ML VIAL IV ONE (09:51)
[2024-07-17] MEDS: MAALOX 30 ML SUSP *UDC PO ONE (09:51)
[2024-07-17 10:09] LABS: BASO % 0.3 % (0.0-1.0); EOS # 0.2 10^3/uL (0.0-0.5); EOS % 2.6 % (0.0-3.0); HEMATOCRIT 39.8 % (36.0-47.0); HEMOGLOBIN 13.1 g/dl (12.0-15.5); LYMPH # 1.8 10^3/uL (1.5-5.0); LYMPH % 28.6 % (24.0-44.0); MEAN CORPUSCULAR HGB CONC 32.9 g/dl (32.0-36.5); MEAN CORPUSCULAR VOLUME 88.2 fl (80.0-96.0); MONO # 0.5 10^3/uL (0.0-0.8); MONO % 7.4 % (2.0-8.0); NEUTROPHILS # 3.8 10^3/uL (1.5-8.5); NEUTROPHILS % 60.8 % (36.0-66.0); PLATELET COUNT, AUTOMATED 213 10^3/uL (150-450); RED BLOOD COUNT 4.51 10^6/uL (4.00-5.40); WHITE BLOOD COUNT 6.2 10^3/uL (4.0-10.0)
[2024-07-17 10:36] LABS: ALBUMIN 3.6 G/DL (3.2-5.2); BILIRUBIN,DIRECT 0.1 MG/DL (<0.4); BILIRUBIN,TOTAL 0.4 MG/DL (0.3-1.2); TOTAL PROTEIN 6.5 G/DL (5.7-8.2)
[2024-07-17] MEDS ORDERED: ISOVUE-370 76% 100ML VIAL As Ordered ONE (11:30)
[2024-07-17] MEDS ORDERED: SUCR1SS PO (12:40)
[2024-07-17] MEDS ORDERED: PANT40TA29 PO (12:40)
[2024-07-17] MEDS ORDERED: ONDA-282 PO (12:40)
[2024-07-17 12:54] VITALS: BP 125/65; TEMP 98.2; O2SAT 100
== END 2024-07-17 13:00 | disposition home or self-care (01) ==
LOC: M ED 07:06
DX: R74.8 Abnormal levels of other serum enzymes (principal); Z79.899 Other long term (current) drug therapy; Z91.013 Allergy to seafood
CPT/HCPCS: 74177; 80047; 80076; 83690; 85025; 87486; 87581; 87633; 87798; 93005; 96374; 99284; J2405; Q9967

== ENCOUNTER 2024-08-04 19:10 | Emergency (ER) | payer OTHER ==
[~2024-08-04] VITALS: Ht 154.9 cm; Wt 88.9 kg
[~2024-08-04 19:10] MED LIST changes: +JUNE1.5T; +PANT40TA29 PO; +SUCR1SS PO
[2024-08-04 21:05] VITALS: TEMP 98.3
[2024-08-04 21:35] LABS: BASO % 0.4 % (0.0-1.0); EOS # 0.1 10^3/uL (0.0-0.5); EOS % 1.6 % (0.0-3.0); HEMATOCRIT 37.6 % (36.0-47.0); HEMOGLOBIN 12.6 g/dl (12.0-15.5); KETONE, URINE AUTO RFX NEGATIVE (NEGATIVE); LEUKOCYTE ESTERASE UR AUTO RFX 1+ (NEGATIVE); LYMPH # 2.6 10^3/uL (1.5-5.0); LYMPH % 34.5 % (24.0-44.0); MEAN CORPUSCULAR HGB CONC 33.5 g/dl (32.0-36.5); MEAN CORPUSCULAR VOLUME 86.4 fl (80.0-96.0); MONO # 0.6 10^3/uL (0.0-0.8); MONO % 8.3 % (2.0-8.0); MUCUS, URINE RFX SMALL (NEGATIVE); NEUTROPHILS # 4.2 10^3/uL (1.5-8.5); NEUTROPHILS % 54.9 % (36.0-66.0); NITRITE, URINE AUTO RFX NEGATIVE (NEGATIVE); PLATELET COUNT, AUTOMATED 230 10^3/uL (150-450); RBC, URINE AUTO RFX 0 /HPF (0-3); RED BLOOD COUNT 4.35 10^6/uL (4.00-5.40); SQUAM EPITHELIAL CELL UR AURFX 10 /HPF (0-6); WBC, URINE AUTO RFX 24 /HPF (0-3); WHITE BLOOD COUNT 7.6 10^3/uL (4.0-10.0)
[2024-08-04 22:08] LABS: LIPASE 40 U/L (12-53)
[2024-08-04 22:11] LABS: ALBUMIN 3.7 G/DL (3.2-5.2); ALKALINE PHOSPHATASE 65 U/L (35-104); ALT/SGPT 26 U/L (7.0-40); AST/SGOT 14 U/L (<34); BILIRUBIN,DIRECT < 0.1 MG/DL (<0.4); BILIRUBIN,TOTAL 0.2 MG/DL (0.3-1.2); BLOOD UREA NITROGEN 18 MG/DL (9-23); CARBON DIOXIDE LEVEL 28 MMOL/L (20-31); CHLORIDE LEVEL 107 MMOL/L (98-107); CREATININE FOR GFR 0.84 MG/DL (0.55-1.30); GLOMERULAR FILTRATION RATE > 60.0 (>60); GLUCOSE, FASTING 77 MG/DL (60-100); POTASSIUM SERUM 4.3 MMOL/L (3.5-5.1); SODIUM LEVEL 142 MMOL/L (136-145); TOTAL PROTEIN 6.5 G/DL (5.7-8.2)
[2024-08-04] MEDS: ONDANSETRON 4MG 2ML VIAL IV ONE (22:11)
[2024-08-04] MEDS: NS 500 ML IV ONE (22:11)
[2024-08-04 22:12] LABS: HCG, SERUM QUALITATIVE NEGATIVE (NEGATIVE)
[2024-08-05 00:30] VITALS: BP 117/60; O2SAT 97
[2024-08-05] MEDS ORDERED: ONDA-282 PO (00:33)
== END 2024-08-05 00:52 | disposition home or self-care (01) ==
LOC: M ED 19:10
DX: A08.11 Acute gastroenteropathy due to Norwalk agent (principal); N39.0 Urinary tract infection, site not specified; K21.9 Gastro-esophageal reflux disease without esophagitis; F12.10 Cannabis abuse, uncomplicated; Z79.83 Long term (current) use of bisphosphonates; Z79.899 Other long term (current) drug therapy; Z91.013 Allergy to seafood
CPT/HCPCS: 74018; 80048; 80076; 81001; 83690; 84703; 85025; 87088; 87186; 87486; 87507; 87581; 87633; 87798; 93041; 96361; 96374; 99284; J2405

== ENCOUNTER → 2024-08-22 | Outpatient (REF) | payer OTHER ==
[2024-08-22 18:06] LABS: AMORPHOUS SEDIMENT SMALL (NEGATIVE); APPEARANCE, URINE HAZY (CLEAR); BACTERIA, URINE AUTO 2+ (NEGATIVE); BILIRUBIN, URINE AUTO NEGATIVE (NEGATIVE); BLOOD, URINE BLOOD 3+ (NEGATIVE); COLOR, URINE YELLOW (YELLOW); GLUCOSE, URINE (UA) AUTO NEGATIVE (NEGATIVE); KETONE, URINE AUTO NEGATIVE (NEGATIVE); LEUKOCYTE ESTERASE, URINE AUTO 2+ (NEGATIVE); NITRITE, URINE AUTO NEGATIVE (NEGATIVE); PROTEIN, URINE AUTO NEGATIVE (NEGATIVE); RBC, URINE AUTO 2 /HPF (0-3); SPECIFIC GRAVITY URINE AUTO 1.003 (1.002-1.035); SQUAMOUS EPITHELIAL CELL UR AU 2 /HPF (0-6); UROBILINOGEN, URINE AUTO 0.2 mg/dL (0.0-2.0); WBC, URINE AUTO 10 /HPF (0-3)
== END ==
LOC: M LAB REF 17:38
PROVIDERS: ATTEND Physician Assistant Medical
DX: N39.0 Urinary tract infection, site not specified (principal)

== ENCOUNTER 2024-08-29 12:20 | Emergency (ER) | payer OTHER ==
[~2024-08-29] VITALS: Ht 154.9 cm; Wt 86.6 kg
[2024-08-29] MEDS ORDERED: NITR100C2 (12:56)
[2024-08-29 13:00] LABS: BASO % 0.1 % (0.0-1.0); EOS % 0.6 % (0.0-3.0); HEMOGLOBIN 14.1 g/dl (12.0-15.5); LYMPH # 1.7 10^3/uL (1.5-5.0); LYMPH % 24.3 % (24.0-44.0); MEAN CORPUSCULAR HEMOGLOBIN 29.1 pg (27.0-33.0); MEAN CORPUSCULAR HGB CONC 33.6 g/dl (32.0-36.5); MEAN CORPUSCULAR VOLUME 86.8 fl (80.0-96.0); MONO # 0.4 10^3/uL (0.0-0.8); MONO % 6.1 % (2.0-8.0); NEUTROPHILS # 4.7 10^3/uL (1.5-8.5); NEUTROPHILS % 68.8 % (36.0-66.0); PLATELET COUNT, AUTOMATED 191 10^3/uL (150-450); RED BLOOD COUNT 4.84 10^6/uL (4.00-5.40); WHITE BLOOD COUNT 6.9 10^3/uL (4.0-10.0)
[2024-08-29 13:12] LABS: KETONE, URINE AUTO RFX 1+ mg/dL (NEGATIVE); LEUKOCYTE ESTERASE UR AUTO RFX NEGATIVE (NEGATIVE); MUCUS, URINE RFX SMALL (NEGATIVE); NITRITE, URINE AUTO RFX NEGATIVE (NEGATIVE); RBC, URINE AUTO RFX 1 /HPF (0-3); SQUAM EPITHELIAL CELL UR AURFX 1 /HPF (0-6); WBC, URINE AUTO RFX 2 /HPF (0-3)
[2024-08-29 13:24] LABS: BLOOD UREA NITROGEN 12 MG/DL (9-23); CALCIUM LEVEL 9.2 MG/DL (8.5-10.1); CARBON DIOXIDE LEVEL 26 MMOL/L (20-31); CHLORIDE LEVEL 106 MMOL/L (98-107); CREATININE FOR GFR 0.85 MG/DL (0.55-1.30); GLOMERULAR FILTRATION RATE > 90.0 (>60); GLUCOSE, FASTING 101 MG/DL (60-100); POTASSIUM SERUM 4.2 MMOL/L (3.5-5.1); SODIUM LEVEL 141 MMOL/L (136-145)
[2024-08-29 13:28] LABS: HCG, SERUM QUALITATIVE NEGATIVE (NEGATIVE)
[2024-08-29 14:31] VITALS: TEMP 96.8
[2024-08-29] MEDS ORDERED: ISOVUE-370 76% 100ML VIAL As Ordered ONE (14:55)
[2024-08-29] MEDS: LIDOCAINE VISCOUS 2% SOLN 15ML UDC PO ONE (15:03)
[2024-08-29] MEDS: NS (Normal Saline) 0.9% 1,000 ML IV ONE (15:03)
[2024-08-29] MEDS: MAALOX 30 ML SUSP *UDC PO ONE (15:03)
[2024-08-29 15:11] LABS: LIPASE 137 U/L (12-53)
[2024-08-29 15:13] LABS: ALBUMIN 4.1 G/DL (3.2-5.2); ALKALINE PHOSPHATASE 73 U/L (35-104); ALT/SGPT 40 U/L (7.0-40); AST/SGOT 25 U/L (<34); BILIRUBIN,DIRECT 0.3 MG/DL (<0.4); BILIRUBIN,TOTAL 0.9 MG/DL (0.3-1.2); TOTAL PROTEIN 7.1 G/DL (5.7-8.2)
[2024-08-29 15:35] VITALS: O2SAT 100
[2024-08-29 15:45] VITALS: BP 125/69
[2024-08-29 15:49] LABS: CPK CREATINE PHOSPHOKINASE 106 U/L (34-145)
[2024-08-29 15:50] LABS: CK-MB VALUE MASS < 1.0 NG/ML (<3.6); MB/CK RELATIVE INDEX 0.94 (< OR =4)
[2024-08-29 15:55] LABS: CK-MB VALUE MASS < 1.0 NG/ML (<3.6)
[2024-08-29 16:00] LABS: CPK CREATINE PHOSPHOKINASE 125 U/L (34-145)
[2024-08-29] MEDS ORDERED: OMEP40CA4 PO (16:22)
== END 2024-08-29 16:44 | disposition home or self-care (01) ==
LOC: M ED 12:20
DX: K29.00 Acute gastritis without bleeding (principal); E86.0 Dehydration; R19.7 Diarrhea, unspecified; R11.2 Nausea with vomiting, unspecified; K21.9 Gastro-esophageal reflux disease without esophagitis; R74.8 Abnormal levels of other serum enzymes; R93.5 Abnormal findings on diagnostic imaging of other abdominal regions, including retroperitoneum; R51.9 Headache, unspecified; F41.9 Anxiety disorder, unspecified; F32.A Depression, unspecified; Z91.013 Allergy to seafood; Z79.83 Long term (current) use of bisphosphonates; Z79.899 Other long term (current) drug therapy
CPT/HCPCS: 71046; 74177; 80048; 80076; 81001; 82550; 82553; 83690; 84484; 84703; 85025; 87486; 87581; 87633; 87798; 93005; 93041; 94760; 96360; 96361; 99284; Q9967

== ENCOUNTER → 2024-09-22 | Outpatient (REF) | payer OTHER ==
[~2024-09-22] MED LIST changes: +NITR100C2; +NITR100C3 PO; +OMEP40CA4 PO
[2024-09-22 18:30] LABS: BASO % 0.2 % (0.0-1.0); EOS # 0.1 10^3/uL (0.0-0.5); EOS % 2.2 % (0.0-3.0); HEMATOCRIT 39.5 % (36.0-47.0); HEMOGLOBIN 13.1 g/dl (12.0-15.5); LYMPH # 1.5 10^3/uL (1.5-5.0); LYMPH % 33.7 % (24.0-44.0); MEAN CORPUSCULAR HEMOGLOBIN 28.9 pg (27.0-33.0); MEAN CORPUSCULAR HGB CONC 33.2 g/dl (32.0-36.5); MONO # 0.5 10^3/uL (0.0-0.8); MONO % 10.6 % (2.0-8.0); NEUTROPHILS # 2.4 10^3/uL (1.5-8.5); NEUTROPHILS % 53.1 % (36.0-66.0); PLATELET COUNT, AUTOMATED 177 10^3/uL (150-450); RED BLOOD COUNT 4.54 10^6/uL (4.00-5.40); WHITE BLOOD COUNT 4.5 10^3/uL (4.0-10.0)
[2024-09-22 18:54] LABS: BLOOD UREA NITROGEN 13 MG/DL (9-23); CALCIUM LEVEL 9.1 MG/DL (8.5-10.1); CARBON DIOXIDE LEVEL 29 MMOL/L (20-31); CHLORIDE LEVEL 106 MMOL/L (98-107); CREATININE FOR GFR 0.82 MG/DL (0.55-1.30); GLOMERULAR FILTRATION RATE > 90.0 (>60); GLUCOSE, FASTING 80 MG/DL (60-100); POTASSIUM SERUM 4.3 MMOL/L (3.5-5.1); SODIUM LEVEL 142 MMOL/L (136-145)
[2024-09-22 19:21] LABS: HCG, SERUM QUALITATIVE NEGATIVE (NEGATIVE)
[2024-09-24 14:15] LABS: LIPASE 100 U/L (12-53)
== END ==
LOC: M LAB REF 17:35
PROVIDERS: ATTEND Nurse Practitioner Family
DX: Z01.818 Encounter for other preprocedural examination (principal); R74.8 Abnormal levels of other serum enzymes

== ENCOUNTER 2024-11-07 13:28 | Emergency (ER) | payer MEDICAID, OTHER ==
[~2024-11-07] VITALS: Ht 154.9 cm; Wt 92.2 kg
[~2024-11-07 13:28] MED LIST changes: -JUNE1.5T; +JUNE1.5T PO
[2024-11-07 13:33] VITALS: TEMP 97.2
[2024-11-07] MEDS: ONDANSETRON 4MG ORAL DISINTEGRATING TAB PO ONE (15:39)
[2024-11-07 15:52] LABS: BASO # 0.0 10^3/uL (0.0-0.2); BASO % 0.3 % (0.0-1.0); EOS # 0.2 10^3/uL (0.0-0.5); EOS % 2.0 % (0.0-3.0); LYMPH # 2.3 10^3/uL (1.5-5.0); LYMPH % 31.1 % (24.0-44.0); MONO # 0.6 10^3/uL (0.0-0.8); MONO % 7.9 % (2.0-8.0); NEUTROPHILS # 4.3 10^3/uL (1.5-8.5); NEUTROPHILS % 58.4 % (36.0-66.0); PLATELET COUNT, AUTOMATED 203 10^3/uL (150-450)
[2024-11-07 16:20] LABS: ALT/SGPT 26 U/L (7.0-40); AST/SGOT 22 U/L (<34); CALCIUM LEVEL 8.6 MG/DL (8.5-10.1); CARBON DIOXIDE LEVEL 26 MMOL/L (20-31); CHLORIDE LEVEL 109 MMOL/L (98-107); CREATININE FOR GFR 0.81 MG/DL (0.55-1.30); GLOMERULAR FILTRATION RATE > 90.0 (>60); POTASSIUM SERUM 4.4 MMOL/L (3.5-5.1); SODIUM LEVEL 143 MMOL/L (136-145)
[2024-11-07 16:22] LABS: FREE T4 1.29 NG/DL (0.89-1.76)
[2024-11-07 16:30] VITALS: BP 104/66; O2SAT 98
[2024-11-07 16:37] LABS: HCG, SERUM QUALITATIVE NEGATIVE (NEGATIVE); MONO SCRN NEGATIVE (NEGATIVE)
[2024-11-07 16:54] LABS: APPEARANCE, URINE CLEAR (CLEAR); BACTERIA, URINE AUTO NEGATIVE (NEGATIVE); BILIRUBIN, URINE AUTO NEGATIVE (NEGATIVE); BLOOD, URINE BLOOD NEGATIVE (NEGATIVE); GLUCOSE, URINE (UA) AUTO NEGATIVE (NEGATIVE); KETONE, URINE AUTO NEGATIVE (NEGATIVE); LEUKOCYTE ESTERASE, URINE AUTO TRACE (NEGATIVE); MUCUS, URINE SMALL (NEGATIVE); NITRITE, URINE AUTO NEGATIVE (NEGATIVE); PROTEIN, URINE AUTO NEGATIVE (NEGATIVE); RBC, URINE AUTO 0 /HPF (0-3); SPECIFIC GRAVITY URINE AUTO 1.024 (1.002-1.035); SQUAMOUS EPITHELIAL CELL UR AU 4 /HPF (0-6); UROBILINOGEN, URINE AUTO 0.2 mg/dL (0.0-2.0); WBC, URINE AUTO 2 /HPF (0-3)
[2024-11-07] MEDS ORDERED: SUCR1ORA20 PO (16:59)
[2024-11-07] MEDS ORDERED: OMEP40CA5 PO (16:59)
[2024-11-07] MEDS ORDERED: HOME MED LIST COMPLETE! XX SCH (17:00)
[2024-11-08] MEDS ORDERED: VENTAER INH (18:18)
[2024-11-08] MEDS ORDERED: PRED20TA PO (18:24)
== END 2024-11-07 17:40 | disposition home or self-care (01) ==
LOC: M ED 13:28
DX: R42 Dizziness and giddiness (principal); R53.83 Other fatigue; J45.909 Unspecified asthma, uncomplicated; K21.9 Gastro-esophageal reflux disease without esophagitis; Z91.013 Allergy to seafood; Z91.040 Latex allergy status; Z91.048 Other nonmedicinal substance allergy status; Z79.52 Long term (current) use of systemic steroids; Z79.899 Other long term (current) drug therapy

== ENCOUNTER 2024-11-08 15:03 | Emergency (ER) | payer OTHER ==
[~2024-11-08] VITALS: Ht 154.9 cm; Wt 91.0 kg
[~2024-11-08 15:03] MED LIST changes: +OMEP40CA5 PO; +SUCR1ORA20 PO
[2024-11-08 16:40] LABS: ALT/SGPT 25 U/L (7.0-40); AST/SGOT 22 U/L (<34); CALCIUM LEVEL 8.9 MG/DL (8.5-10.1); CARBON DIOXIDE LEVEL 23 MMOL/L (20-31); CHLORIDE LEVEL 109 MMOL/L (98-107); CREATININE FOR GFR 0.89 MG/DL (0.55-1.30); GLOMERULAR FILTRATION RATE > 90.0 (>60); POTASSIUM SERUM 4.1 MMOL/L (3.5-5.1); SODIUM LEVEL 142 MMOL/L (136-145)
[2024-11-08 17:10] LABS: BASO # 0.0 10^3/uL (0.0-0.2); BASO % 0.2 % (0.0-1.0); EOS # 0.0 10^3/uL (0.0-0.5); EOS % 0.4 % (0.0-3.0); LYMPH # 1.1 10^3/uL (1.5-5.0); LYMPH % 13.6 % (24.0-44.0); MONO # 0.2 10^3/uL (0.0-0.8); MONO % 2.5 % (2.0-8.0); NEUTROPHILS # 6.7 10^3/uL (1.5-8.5); NEUTROPHILS % 82.9 % (36.0-66.0); PLATELET COUNT, AUTOMATED 160 10^3/uL (150-450)
[2024-11-08 17:15] LABS: HCG, SERUM QUALITATIVE NEGATIVE (NEGATIVE)
[2024-11-08] MEDS: IPRATROPIUM 0.5 MG/ALBUTEROL 2.5 MG INH SOL UD 3 ML NEB PRN (17:25)
[2024-11-08 18:08] VITALS: O2SAT 97
[2024-11-08] MEDS ORDERED: VENTAER INH (18:18)
[2024-11-08] MEDS ORDERED: PRED20TA PO (18:24)
[2024-11-08 18:30] VITALS: BP 111/68; TEMP 98.2
[2024-11-08 18:33] VITALS: O2SAT 98
== END 2024-11-08 18:45 | disposition home or self-care (01) ==
LOC: EDBD 15:03 → M ED 15:03
DX: R06.02 Shortness of breath (principal); J45.909 Unspecified asthma, uncomplicated; K21.9 Gastro-esophageal reflux disease without esophagitis; Z91.040 Latex allergy status; Z91.013 Allergy to seafood; Z91.048 Other nonmedicinal substance allergy status; Z79.52 Long term (current) use of systemic steroids; Z79.899 Other long term (current) drug therapy

== ENCOUNTER → 2024-11-12 | Outpatient (REF) | payer OTHER ==
[2024-11-12 19:07] LABS: ESTIMATED AVERAGE GLUCOSE 103.0 MG/DL (60-110)
== END ==
LOC: M LAB REF 17:41
PROVIDERS: ATTEND Nurse Practitioner Family
DX: R42 Dizziness and giddiness (principal)

== ENCOUNTER 2024-12-19 12:33 | Emergency (ER) | payer OTHER ==
[~2024-12-19] VITALS: Ht 154.9 cm; Wt 85.5 kg
[2024-12-19] MEDS: NS (Normal Saline) 0.9% 1,000 ML IV ONE (17:12)
[2024-12-19 17:18] VITALS: O2SAT 99
[2024-12-19] MEDS: FAMOTIDINE IV BAG 20 MG in IV 1 EA IV ONE (17:18)
[2024-12-19 17:30] VITALS: BP 104/59
[2024-12-19] MEDS: diphenhydrAMINE 50 MG/ML VIAL IV STA (17:43)
[2024-12-19] MEDS ORDERED: PRED20TA PO ×2 (17:52→18:14)
[2024-12-19] MEDS ORDERED: BENA25CA4 PO (17:52)
[2024-12-19] MEDS ORDERED: EPIP0.3I2 IM (17:52)
[2024-12-19] MEDS ORDERED: FAMO20TA PO (17:52)
[2024-12-19 18:00] VITALS: TEMP 97.7
== END 2024-12-19 18:53 | disposition home or self-care (01) ==
LOC: EDBD 12:33 → M ED 12:33
DX: T78.02XA Anaphylactic reaction due to shellfish (crustaceans), initial encounter (principal); J45.909 Unspecified asthma, uncomplicated; K21.9 Gastro-esophageal reflux disease without esophagitis; Z91.013 Allergy to seafood; Z91.040 Latex allergy status; Z91.048 Other nonmedicinal substance allergy status; Z79.52 Long term (current) use of systemic steroids; Z79.899 Other long term (current) drug therapy
CPT/HCPCS: 93041; 96365; 96375; 99285; J1200; J1308; J2919

== ENCOUNTER 2025-02-22 01:25 | Inpatient (IN) | payer OTHER ==
[~2025-02-22] VITALS: Ht 154.9 cm; Wt 90.9 kg
[~2025-02-22 01:25] MED LIST changes: +BENA25CA4 PO; +FAMO20TA PO; -IBUP-1022 PO; +IBUP600T42 PO
[2025-02-22 02:12] LABS: PLATELET COUNT, AUTOMATED 210 10^3/uL (150-450)
[2025-02-22 02:35] LABS: AMPHETAMINES LEVEL URINE NEGATIVE (NEGATIVE); BARBITURATES URINE NEGATIVE (NEGATIVE); BENZODIAZEPINES URINE NEGATIVE (NEGATIVE); COCAINE METABOLITE URINE NEGATIVE (NEGATIVE); METHADONE URINE NEGATIVE (NEGATIVE); OPIATES URINE NEGATIVE (NEGATIVE)
[2025-02-22 02:36] LABS: CANNABINOIDS URINE POSITIVE (NEGATIVE); PHENCYCLIDINE URINE NEGATIVE (NEGATIVE)
[2025-02-22 02:38] LABS: ETHYL ALCOHOL (ETHANOL) < 0.003 % (0.000-0.010)
[2025-02-22 02:39] LABS: ALT/SGPT 30 U/L (7.0-40); AST/SGOT 17 U/L (<34); CALCIUM LEVEL 8.4 MG/DL (8.5-10.1); CARBON DIOXIDE LEVEL 24 MMOL/L (20-31); CHLORIDE LEVEL 107 MMOL/L (98-107); CREATININE FOR GFR 0.89 MG/DL (0.55-1.30); GLOMERULAR FILTRATION RATE > 90.0 (>60); POTASSIUM SERUM 3.5 MMOL/L (3.5-5.1); SALICYLATE LEVEL < 3.0 MG/DL (<30); SODIUM LEVEL 142 MMOL/L (136-145)
[2025-02-22 03:18] LABS: HCG, SERUM QUALITATIVE NEGATIVE (NEGATIVE)
[2025-02-22] MEDS ORDERED: MAALOX 30 ML SUSP *UDC PO PRN (03:55)
[2025-02-22] MEDS ORDERED: MOM 30 ML SUSPENSION UDC PO PRN (03:55)
[2025-02-22 04:52] VITALS: BP 122/82; TEMP 96.8; O2SAT 100
[2025-02-22] MEDS ORDERED: EPIN0.3I11 IM (05:00)
[2025-02-22] MEDS ORDERED: BENA25CA4 PO (05:00)
[2025-02-22] MEDS ORDERED: HOME MED LIST COMPLETE! XX SCH (05:00)
[2025-02-22] MEDS ORDERED: ALBU8.5H INH (05:00)
[2025-02-22] MEDS: BACTRIM 160MG/800MG DS TAB PO SCH (14:50)
[2025-02-22] MEDS: ACETAMINOPHEN 325 MG TAB PO PRN (14:53)
[2025-02-22 15:27] VITALS: BP 123/67; TEMP 97.5; O2SAT 99
[2025-02-22 15:27] LABS: KETONE, URINE AUTO RFX NEGATIVE (NEGATIVE); MUCUS, URINE RFX SMALL (NEGATIVE); RBC, URINE AUTO RFX 16 /HPF (0-3); SQUAM EPITHELIAL CELL UR AURFX 12 /HPF (0-6)
[2025-02-22 15:30] LABS: LEUKOCYTE ESTERASE UR AUTO RFX 3+ (NEGATIVE); NITRITE, URINE AUTO RFX POSITIVE (NEGATIVE); WBC, URINE AUTO RFX TNTC /HPF (0-3)
[2025-02-22] MEDS: traZODone 50 MG TAB PO PRN (20:19)
[2025-02-22] MEDS: IBUPROFEN 400 MG TAB PO PRN (20:19)
[2025-02-22] MEDS: OLANZapine 5 MG TAB PO SCH (20:42)
[2025-02-23 06:13] VITALS: BP 124/68; TEMP 96.9; O2SAT 98
[2025-02-23] MEDS: lamoTRIgine 25 MG TAB PO SCH (08:09)
[2025-02-23] MEDS: FLUZONE VACCINE TRI PF(25-26) 0.5ML SYRINGE IM.IMMUN ONE (08:10)
[2025-02-23 15:09] VITALS: BP 128/75; TEMP 98.7; O2SAT 100
[2025-02-23] MEDS: ETHINYL ESTRADIOL PO SCH (21:00)
[2025-02-23] MEDS: NORETHINDRONE PO SCH (21:00)
[2025-02-23] MEDS: FERROUS FUMARATE PO SCH (21:00)
[2025-02-24 06:21] VITALS: BP 134/69; TEMP 97.1; O2SAT 96
[2025-02-24] MEDS: SERTRALINE HCL 25 MG TABLET PO ONE (08:31)
[2025-02-24] MEDS ORDERED: JUNEL PO SCH (09:00)
[2025-02-24 15:48] VITALS: BP 138/73; TEMP 97.4; O2SAT 99
[2025-02-24] MEDS: JUNEL FE PO SCH (18:23)
[2025-02-24] MEDS: traZODone 50 MG TAB PO SCH (20:05)
[2025-02-24] MEDS: OLANZapine 5 MG TAB PO SCH (20:07)
[2025-02-25 06:29] VITALS: BP 142/73; TEMP 97.4; O2SAT 99
[2025-02-25] MEDS: SERTRALINE HCL 50 MG TAB PO SCH (08:32)
[2025-02-25] MEDS ORDERED: SERT50TA29 PO (11:49)
[2025-02-25] MEDS ORDERED: OLAN7.5T38 PO (11:49)
[2025-02-25] MEDS ORDERED: TRAZ-252 PO (11:49)
== END 2025-02-25 14:28 | disposition home or self-care (01) | DRG 751 ==
LOC: M ED 01:25 → M ED INP 03:53 → M PSY 04:44
PROVIDERS: ADMIT Psychiatry & Neurology Neurology; ATTEND Psychiatry & Neurology Neurology
DX: F32.3 Major depressive disorder, single episode, severe with psychotic features (principal); R45.850 Homicidal ideations; R45.851 Suicidal ideations; F41.0 Panic disorder [episodic paroxysmal anxiety]; F12.90 Cannabis use, unspecified, uncomplicated; F43.10 Post-traumatic stress disorder, unspecified; F90.9 Attention-deficit hyperactivity disorder, unspecified type; Z91.013 Allergy to seafood; Z91.040 Latex allergy status; Z79.899 Other long term (current) drug therapy; N39.0 Urinary tract infection, site not specified; B96.20 Unspecified Escherichia coli [E. coli] as the cause of diseases classified elsewhere

== ENCOUNTER → 2025-03-25 | Outpatient (CLI) | payer OTHER, MEDICAID ==
[~2025-03-25] MED LIST changes: +ALBU8.5H INH; +EPIN0.3I11 IM; +OLAN7.5T38 PO; +SERT50TA29 PO; +SULF-7 PO; -SULF1TAB23 PO
== END ==
LOC: M RAD 12:48
PROVIDERS: ATTEND Nurse Practitioner Family
DX: M54.6 Pain in thoracic spine (principal); M25.561 Pain in right knee; M96.0 Pseudarthrosis after fusion or arthrodesis

== ENCOUNTER 2025-04-18 23:38 | Emergency (ER) | payer OTHER ==
[~2025-04-18] VITALS: Ht 154.9 cm; Wt 103.4 kg
[2025-04-19 00:17] LABS: BASO # 0.0 10^3/uL (0.0-0.2); BASO % 0.2 % (0.0-1.0); EOS # 0.2 10^3/uL (0.0-0.5); EOS % 2.3 % (0.0-3.0); LYMPH # 2.3 10^3/uL (1.5-5.0); LYMPH % 24.9 % (24.0-44.0); MONO # 0.7 10^3/uL (0.0-0.8); MONO % 8.1 % (2.0-8.0); NEUTROPHILS # 5.8 10^3/uL (1.5-8.5); NEUTROPHILS % 63.7 % (36.0-66.0); PLATELET COUNT, AUTOMATED 234 10^3/uL (150-450)
[2025-04-19 00:25] LABS: CK-MB VALUE MASS < 1.0 NG/ML (<3.6)
[2025-04-19 00:27] LABS: CALCIUM LEVEL 9.0 MG/DL (8.5-10.1); CARBON DIOXIDE LEVEL 26 MMOL/L (20-31); CHLORIDE LEVEL 106 MMOL/L (98-107); CPK CREATINE PHOSPHOKINASE 117 U/L (34-145); CREATININE FOR GFR 0.80 MG/DL (0.55-1.30); GLOMERULAR FILTRATION RATE > 90.0 (>60); POTASSIUM SERUM 3.8 MMOL/L (3.5-5.1); SODIUM LEVEL 141 MMOL/L (136-145)
[2025-04-19 01:27] LABS: CK-MB VALUE MASS < 1.0 NG/ML (<3.6)
[2025-04-19 01:29] LABS: CPK CREATINE PHOSPHOKINASE 122 U/L (34-145)
[2025-04-19 03:23] VITALS: BP 168/91; TEMP 97.6; O2SAT 99
[2025-04-19] MEDS ORDERED: PRED20TA PO (03:37)
[2025-04-19] MEDS: ALBUTEROL 90 MCG/ACT 8 GM HFA INHALER INH ONE (03:45)
[2025-04-19] MEDS: predniSONE 20 MG TAB PO ONE (03:46)
== END 2025-04-19 03:57 | disposition home or self-care (01) ==
LOC: M ED 23:38 → EDBD 23:38 → M ED 04-19 03:57
DX: R07.9 Chest pain, unspecified (principal); B97.4 Respiratory syncytial virus as the cause of diseases classified elsewhere; J45.909 Unspecified asthma, uncomplicated; F17.290 Nicotine dependence, other tobacco product, uncomplicated; F12.10 Cannabis abuse, uncomplicated; F10.10 Alcohol abuse, uncomplicated; Z91.040 Latex allergy status; Z91.013 Allergy to seafood; Z91.09 Other allergy status, other than to drugs and biological substances; Z79.51 Long term (current) use of inhaled steroids; Z79.52 Long term (current) use of systemic steroids; Z79.899 Other long term (current) drug therapy
CPT/HCPCS: 36415; 71045; 80048; 82550; 82553; 84484; 85025; 87486; 87581; 87633; 87798; 93005; 93041; 94760; 99285; J7512